=== PATIENT | male | born 1995 | race American Indian/Alaskan Native ===

== ENCOUNTER 2016-07-24 16:11 | Emergency (ER) | payer MEDICAID, OTHER ==
[2016-07-24] MEDS ORDERED: NORCO 5/325 PO ONE (17:57)
[2016-07-24] MEDS ORDERED: ZOFRAN ODT PO ONE (17:57)
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
[2016-07-24 19:31] VITALS: BP 129/86
--- NOTE | 2016-07-25 07:39 | XRay Report ---
RIGHT HAND, 3 views: History: Right hand pain The bony architecture is intact. Bony alignment is normal. No soft tissue abnormalities are seen. The joint spaces appear preserved. IMPRESSION: Normal right hand.
--- NOTE | 2016-07-25 07:40 | XRay Report ---
LUMBOSACRAL SPINE, 3 VIEWS: History: Back pain Findings: The vertebral bodies, disk spaces and posterior elements are intact. No compression deformity or malalignment. The SI joints are symmetric and unremarkable. Impression: 1. No evidence for acute injury to the lumbar spine.
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
--- NOTE | 2016-07-25 07:41 | XRay Report ---
AP CHEST: HISTORY: chest pain AP view of the chest demonstrates a normal mediastinal and cardiac contour with clear lungs and normal bony and soft tissue structures. IMPRESSION: Unremarkable AP chest.
== END 2016-07-24 19:32 | disposition home or self-care (01) ==
LOC: ED 16:11
DX: S16.1XXA Strain of muscle, fascia and tendon at neck level, initial encounter (principal); S39.012A Strain of muscle, fascia and tendon of lower back, initial encounter; S20.219A Contusion of unspecified front wall of thorax, initial encounter; M79.604 Pain in right leg; M79.605 Pain in left leg; M79.641 Pain in right hand; J45.909 Unspecified asthma, uncomplicated; V89.2XXA Person injured in unspecified motor-vehicle accident, traffic, initial encounter; W22.10XA Striking against or struck by unspecified automobile airbag, initial encounter; Y93.89 Activity, other specified; Y99.8 Other external cause status; Y92.89 Other specified places as the place of occurrence of the external cause
CPT/HCPCS: 70450; 71020; 72100; 72125; Q0162